=== PATIENT | male | born 1980 | race Two or more races ===

== ENCOUNTER 2022-06-16 04:13 | Day surgery (SDC) | payer OTHER ==
[2022-06-10 10:39] VITALS: BMI 24.3
[2022-06-16] MEDS ORDERED: ONDANSETRON 4 MG/2 ML VIAL ONE (12:05)
[2022-06-16] MEDS ORDERED: MIDAZOLAM HCL 2 MG/2 ML SINGLE DOSE VIAL ONE (12:05)
[2022-06-16] MEDS ORDERED: FENTANYL CITRATE/PF 50 MCG/ML VIAL ONE (12:05)
[2022-06-16 13:16] VITALS: RESP 16; TEMP 98
[2022-06-16 13:23] VITALS: BP 140/90; PULSE 70
== END 2022-06-16 13:10 | disposition home or self-care (01) ==
LOC: JASU-SURG 04:13
PROVIDERS: ATTEND Urology
PROC: 0TC18ZZ Extirpation of Matter from Left Kidney, Via Natural or Artificial Opening Endoscopic (ICD-10-PCS; principal; 2022-06-16 11:00)
DX: N20.0 Calculus of kidney (principal)